=== PATIENT | female | born 1990 | race Caucasian/White ===

== ENCOUNTER 2016-10-27 18:50 | Emergency (ER) | payer SELFPAY ==
[~2016-10-27] VITALS: Ht 157.5 cm; Wt 68.2 kg
[~2016-10-27 18:50] MED LIST: PROT40TA PO; ZOFR4TAB3 PO
[2016-10-27 19:02] VITALS: BP 181/79; PULSE 75; RESP 16; TEMP 98.1; O2SAT 98
[2016-10-27 19:03] VITALS: BP 135/68
--- NOTE | 2016-10-28 13:44 | EKG ---
Date Performed: 10/27/2016 Time Performed: 19:32:42 PTAGE: 26 years EKG: Sinus rhythm NORMAL ECG NO PREVIOUS TRACING DOCTOR: Wallace Sapp Interpretating Date/Time 10/28/2016 13:38:31
== END 2016-10-27 21:00 | disposition left against medical advice (07) ==
LOC: NED 18:50
DX: R07.9 Chest pain, unspecified (principal); Z53.29 Procedure and treatment not carried out because of patient's decision for other reasons
CPT/HCPCS: 93005; 99281